=== PATIENT | female | born 1975 | race Caucasian/White ===

== ENCOUNTER 2017-09-01 11:17 | Emergency (ER) | payer OTHER ==
[~2017-09-01] VITALS: Ht 175.3 cm; Wt 79.4 kg
[~2017-09-01 11:17] MED LIST: ACETAMINOPHEN325 M1 PO; ALEVE220 MG PO; AUGMENTIN 875875 MG PO; AUROGUARD OTIC15 ML OT; AZITHROMYCIN 2250 MG PO; BACTRIM DS TAB1 EACH PO; BACTROBAN15 GM TP; BUSPAR30 MG PO; BUSPIRONE 10 MG PO; CELEXA 10 MG TA10 M1; COMPAZINE10 MG PO; HYDROCODONE-AP1 EAC6 PO; IBUPROFEN 200200 M1 PO; KEFLEX500 MG PO; LIDOCAINE VISC100 M1 SWISH&SPIT; MEDROL DOSPAK21 TAB PO; NORCO 5-325 TA1 EAC1 PO; NORCO 5-325 TA1 EACH PO; PHENERGAN 25 MG25 M1 PO; RISPERDAL 1 MG T1 MG PO; RISPERDAL2 MG PO; TESSALON200 MG PO; XANAX 0.5 MG0.5 M1; ZYVOX600 MG PO
[2017-09-01] MEDS ORDERED: TYLENOL325 MG PO (11:29)
[2017-09-01] MEDS ORDERED: IBUPROFEN 600600 M1 PO (11:29)
[2017-09-01 11:50] LABS: ABSOLUTE EOSINOPHILS 0.3 thou/uL (0.0-0.7); ABSOLUTE LYMPHOCYTES 2.4 thou/uL (0.8-5.3); ABSOLUTE NEUTROPHILS 6.5 thou/uL (1.6-8.1); BASOPHILS 0.4 %; EOSINOPHILS 2.6 %; HEMATOCRIT 33.2 % (37.0-47.0); HEMOGLOBIN 10.7 gm/dL (12.0-15.0); LYMPHOCYTES 23.5 %; MCH 24.3 pg (26.0-34.0); MCHC 32.2 g/dL (28.0-37.0); MCV 75.7 fL (80.0-100.0); MONOCYTES 9.4 %; MPV 6.7 fl. (7.2-11.1); NUCLEATED RBCS 0 /100WBC; PLATELET COUNT* 322 thou/uL (150-400); POLYS 64.1 %; RBC 4.39 mil/uL (4.20-5.00); RDW-CV 17.7 % (10.5-14.5); WBC 10.2 thou/uL (4.0-11.0)
[2017-09-01 12:00] LABS: CALCIUM 8.5 mg/dL (8.5-10.1); CREATININE 0.8 mg/dL (0.6-1.3); POTASSIUM 3.4 mmol/L (3.5-5.1)
[2017-09-01 12:05] LABS: TOTAL BILIRUBIN 0.1 mg/dL (<0.1-1.0)
[2017-09-01] MEDS ORDERED: BACTRIM DS TAB1 EAC1 PO (13:11)
[2017-09-01] MEDS ORDERED: NORCO 5-325 TA1 EACH PO (13:11)
[2017-09-01] MEDS ORDERED: KEFLEX500 M1 PO (13:11)
[2017-09-01 13:41] VITALS: BP 109/68
[2017-09-02] MEDS ORDERED: PREDNISONE 10 M10 MG PO (05:56)
== END 2017-09-01 13:42 | disposition home or self-care (01) ==
LOC: M.ERS 11:17
PROVIDERS: Personal Emergency Response Attendant
DX: L03.213 Periorbital cellulitis (principal); F31.9 Bipolar disorder, unspecified; F17.210 Nicotine dependence, cigarettes, uncomplicated; Z86.14 Personal history of Methicillin resistant Staphylococcus aureus infection

== ENCOUNTER 2017-09-02 04:13 | Emergency (ER) | payer OTHER ==
[~2017-09-02] VITALS: Ht 175.3 cm; Wt 79.4 kg
[~2017-09-02 04:13] MED LIST changes: +BACTRIM DS TAB1 EAC1 PO; +IBUPROFEN 600600 M1 PO; +KEFLEX500 M1 PO; +TYLENOL325 MG PO
[2017-09-02] MEDS ORDERED: PREDNISONE 10 M10 MG PO (05:56)
[2017-09-02 06:11] VITALS: BP 117/64
== END 2017-09-02 06:10 | disposition home or self-care (01) ==
LOC: M.ERS 04:13
DX: T78.40XA Allergy, unspecified, initial encounter (principal); F31.9 Bipolar disorder, unspecified; Z86.14 Personal history of Methicillin resistant Staphylococcus aureus infection; F17.210 Nicotine dependence, cigarettes, uncomplicated; X58.XXXA Exposure to other specified factors, initial encounter; R22.0 Localized swelling, mass and lump, head

== ENCOUNTER 2017-12-18 14:09 | Emergency (ER) | payer OTHER ==
[~2017-12-18] VITALS: Ht 175.3 cm; Wt 79.4 kg
[~2017-12-18 14:09] MED LIST changes: +PREDNISONE 10 M10 MG PO
[2017-12-18] MEDS ORDERED: ALEVE220 MG (14:24)
[2017-12-18 14:55] LABS: ABSOLUTE EOSINOPHILS 0.4 thou/uL (0.0-0.7); ABSOLUTE MONOCYTES 0.4 thou/uL (0.0-1.2); ABSOLUTE NEUTROPHILS 3.7 thou/uL (1.6-8.1); BASOPHILS 0.4 %; EOSINOPHILS 6.5 %; HEMATOCRIT 37.1 % (37.0-47.0); HEMOGLOBIN 11.7 gm/dL (12.0-15.0); MCH 23.7 pg (26.0-34.0); MCHC 31.6 g/dL (28.0-37.0); MONOCYTES 6.4 %; MPV 7.3 fl. (7.2-11.1); NUCLEATED RBCS 0 /100WBC; PLATELET COUNT* 365 thou/uL (150-400); POLYS 56.7 %; RBC 4.94 mil/uL (4.20-5.00); RDW-CV 18.5 % (10.5-14.5); WBC 6.6 thou/uL (4.0-11.0)
[2017-12-18 14:58] LABS: URINE BILIRUBIN NEGATIVE (Negative); URINE BLOOD NEGATIVE (Negative); URINE CLARITY CLEAR; URINE COLOR YELLOW; URINE GLUCOSE-RANDOM NEGATIVE (Negative); URINE KETONES NEGATIVE (Negative); URINE NITRITE-REFLEX NEGATIVE (Negative); URINE PROTEIN NEGATIVE (Negative); URINE SPECIFIC GRAVITY <= 1.005 (1.005-1.030); URINE UROBILINOGEN 0.2 E.U./dl (0.2-1.0)
[2017-12-18 14:59] LABS: URINE LEUKOCYTES-REFLEX 3+ (Negative)
[2017-12-18 15:03] LABS: ANION GAP 4 mmol/L (7-16); BUN 11 mg/dL (7-18); CALCIUM 8.8 mg/dL (8.5-10.1); CHLORIDE 104 mmol/L (98-107); CO2 31 mmol/L (21-32); CREATININE 0.7 mg/dL (0.6-1.3); GLUCOSE 74 mg/dL (70-99); POTASSIUM 3.5 mmol/L (3.5-5.1); SODIUM 139 mmol/L (136-145)
[2017-12-18 15:06] LABS: CASTS None Seen /LPF (None Seen); CRYSTALS None Seen /LPF (None Seen); MUCUS None Seen strn/LPF (None Seen); SQUAMOUS >10 Many /LPF (0-3)
[2017-12-18 15:07] LABS: BACTERIA-REFLEX 1-9 Few /HPF (None Seen)
[2017-12-18 15:08] LABS: URINE RBC 0-2 Rare /HPF (0-2)
[2017-12-18 15:10] LABS: ALBUMIN 3.4 g/dL (3.4-5.0); ALKALINE PHOSPHATASE 71 U/L (46-116); LIPASE 211 U/L (73-393); SGOT 13 U/L (15-37); SGPT 17 U/L (30-65); TOTAL BILIRUBIN 0.2 mg/dL (<0.1-1.0); TOTAL PROTEIN 7.5 g/dL (6.4-8.2); TROPONIN-I LEVEL <0.06 ng/mL (<0.06)
[2017-12-18] MEDS ORDERED: BACTRIM DS TAB1 EACH PO (15:42)
[2017-12-18] MEDS ORDERED: ACETAMINOPHEN-1 EAC1 PO (15:42)
[2017-12-18 15:51] VITALS: BP 99/49
--- NOTE | 2017-12-19 11:56 | EKG ---
[place] [address] ELECTROCARDIOGRAM REPORT Name: KANDIROSEMARIE Room: [facility]#: [id number] Admission: 12/18/17 Attend Phys: Discharge: 12/18/17 Date of : 79 Report #: [id number] THIS REPORT FOR: //name// [facility] ED Test Date: 2017-12-18 Test Time: 14:54:50 Pat Name: ROSEMARIE CHAU Department: Room: Gender: F Intranet Specialist: Marco MONTELONGO : 1975 Requested By: Elva Serrano Order Number: [id number] MD: Nilo Cid Measurements Intervals [place] Rate: 66 P: 59 PA: 154 QRS: 36 QRSD: 85 T: 33 QT: 380 QTc: 399 Interpretive Statements Sinus rhythm Baseline wander in lead(s) V1 Compared to ECG 09/19/2011 23:51:30 No significant changes Electronically Signed On 12-19-2017 11:56:29 CDT by Nilo Cid [email or web address] <ELECTRONICALLY SIGNED> By: Nilo Cid MD, [facility] 12/19/17 1156 [id number] [id number] Nilo Cid MD, [facility] /EPI
== END 2017-12-18 15:52 | disposition home or self-care (01) ==
LOC: M.ERS 14:09
PROVIDERS: Nurse Practitioner Family
DX: N39.0 Urinary tract infection, site not specified (principal); R11.2 Nausea with vomiting, unspecified; R19.7 Diarrhea, unspecified; F31.9 Bipolar disorder, unspecified; F17.210 Nicotine dependence, cigarettes, uncomplicated; Z98.890 Other specified postprocedural states; Z86.14 Personal history of Methicillin resistant Staphylococcus aureus infection

== ENCOUNTER 2018-05-04 08:52 | Emergency (ER) | payer OTHER ==
[~2018-05-04] VITALS: Ht 175.3 cm; Wt 83.9 kg
[~2018-05-04 08:52] MED LIST changes: +ACETAMINOPHEN-1 EAC1 PO; +ALEVE220 MG
[2018-05-04 09:09] LABS: URINE BILIRUBIN NEGATIVE (Negative); URINE BLOOD NEGATIVE (Negative); URINE CLARITY CLEAR; URINE COLOR YELLOW; URINE GLUCOSE-RANDOM NEGATIVE (Negative); URINE KETONES TRACE (Negative); URINE LEUKOCYTES-REFLEX TRACE (Negative); URINE NITRITE-REFLEX NEGATIVE (Negative); URINE PROTEIN NEGATIVE (Negative); URINE SPECIFIC GRAVITY 1.025 (1.005-1.030); URINE UROBILINOGEN 0.2 E.U./dl (0.2-1.0)
[2018-05-04 09:17] LABS: ABSOLUTE BASOPHILS 0.1 thou/uL (0.0-0.2); ABSOLUTE EOSINOPHILS 0.4 thou/uL (0.0-0.7); ABSOLUTE LYMPHOCYTES 3.1 thou/uL (0.8-5.3); ABSOLUTE MONOCYTES 0.7 thou/uL (0.0-1.2); ABSOLUTE NEUTROPHILS 2.7 thou/uL (1.6-8.1); BASOPHILS 0.7 %; EOSINOPHILS 6.3 %; HEMATOCRIT 34.5 % (37.0-47.0); HEMOGLOBIN 11.4 gm/dL (12.0-15.0); LYMPHOCYTES 44.6 %; MCH 25.7 pg (26.0-34.0); MCV 77.8 fL (80.0-100.0); MONOCYTES 9.7 %; MPV 6.9 fl. (7.2-11.1); NUCLEATED RBCS 0 /100WBC; PLATELET COUNT* 300 thou/uL (150-400); POLYS 38.7 %; RBC 4.43 mil/uL (4.20-5.00); RDW-CV 17.9 % (10.5-14.5); WBC 7.1 thou/uL (4.0-11.0)
[2018-05-04 09:26] LABS: SQUAMOUS 4-10 Moderate /LPF (0-3)
[2018-05-04 09:27] LABS: BACTERIA-REFLEX 1-9 Few /HPF (None Seen); CASTS None Seen /LPF (None Seen); CRYSTALS None Seen /LPF (None Seen); MUCUS >6 Heavy strn/LPF (None Seen); URINE RBC 0-2 Rare /HPF (0-2); URINE WBC-REFLEX 0-5 Rare /HPF (0-5)
[2018-05-04 09:30] LABS: ANION GAP 6 mmol/L (7-16); BUN 18 mg/dL (7-18); CALCIUM 8.5 mg/dL (8.5-10.1); CHLORIDE 105 mmol/L (98-107); CO2 27 mmol/L (21-32); CREATININE 0.7 mg/dL (0.6-1.3); GLUCOSE 96 mg/dL (70-99); POTASSIUM 3.7 mmol/L (3.5-5.1); SODIUM 138 mmol/L (136-145)
[2018-05-04 09:35] LABS: ALBUMIN 2.8 g/dL (3.4-5.0); ALKALINE PHOSPHATASE 69 U/L (46-116); SGOT 16 U/L (15-37); SGPT 21 U/L (30-65); TOTAL PROTEIN 6.2 g/dL (6.4-8.2)
[2018-05-04 09:37] LABS: TOTAL BILIRUBIN < 0.1 mg/dL (<0.1-1.0)
[2018-05-04 10:58] VITALS: BP 0/0
== END 2018-05-04 10:58 | disposition left against medical advice (07) ==
LOC: M.ERS 08:52
PROVIDERS: Emergency Medicine
DX: R10.9 Unspecified abdominal pain (principal); F31.9 Bipolar disorder, unspecified; F17.210 Nicotine dependence, cigarettes, uncomplicated; Z98.890 Other specified postprocedural states; Z86.14 Personal history of Methicillin resistant Staphylococcus aureus infection

== ENCOUNTER 2019-11-29 11:19 | Emergency (ER) | payer OTHER ==
[~2019-11-29] VITALS: Ht 175.3 cm; Wt 90.7 kg
[2019-11-29] MEDS ORDERED: TYLENOL WITH CO1 TA1 PO (13:07)
[2019-11-29] MEDS ORDERED: AMOXICILLIN 50500 MG PO (13:07)
[2019-11-29 13:19] VITALS: BP 122/62
== END 2019-11-29 13:20 | disposition home or self-care (01) ==
LOC: M.ERS 11:19
DX: S00.83XA Contusion of other part of head, initial encounter (principal); F17.210 Nicotine dependence, cigarettes, uncomplicated; Z98.890 Other specified postprocedural states; Z98.51 Tubal ligation status; Z86.14 Personal history of Methicillin resistant Staphylococcus aureus infection; W17.89XA Other fall from one level to another, initial encounter; Y93.39 Activity, other involving climbing, rappelling and jumping off; Y92.89 Other specified places as the place of occurrence of the external cause; Y99.8 Other external cause status